=== PATIENT | female | born 1980 | race Caucasian/White ===

== ENCOUNTER 2017-08-17 05:40 | Day surgery (SDC) | payer OTHER ==
[~2017-08-17] VITALS: Ht 172.7 cm; Wt 112.0 kg
[~2017-08-17 05:40] MED LIST: LEVOTHYROXINE88 MCG PO; METFORMIN HCL1000 MG PO; PRAVASTATIN SOD20 MG PO; TOUJEO SOL300 UNIT/1; VICTOZA 3-0.6 MG/0.1 SUB-Q
[2017-08-17] MEDS ORDERED: DOXYCYCLINE HY100 MG PO (06:02)
[2017-08-17] MEDS ORDERED: LISINOPRIL10 MG PO (06:02)
--- NOTE | 2017-08-17 06:36 | NUR ---
LE: 0540 PT ARRIVED AMBULATING ON OWN WITH . PT IN ROOM, WIPE DOWN DONE. VITALS OBTAINED AND CHECK IN COMPLETE. IV SITE ATTEMPTED X3, NO SUCCESS. OR CHARGE NOTIFIED. REQUEST RAINA BUENO ATTEMPT IV WITH US. PT RESTING, CALL LIGHT IN REACH.
--- NOTE | 2017-08-17 09:00 | NUR ---
08/17/17 0900 Nelly Borges 0826 RESP EVEN AND UNLABORED. PT DENINES PAIN AND NAUSEA, BUT HAS SOME DIZZINESS. 0830 O2 SAT 99%, O2 REMOVED. 0850 PT DRINKING 10ML OF WATER. PT REPORTS A DECREASE IN DIZZINESS. 0900 PT RESTING IN BED IN HIGH FOWLERS. PT DENIENS PAIN AND NAUSEA.
--- NOTE | 2017-08-20 11:54 | OR ---
[facility] [address] [place], [place] [address] Signed DATE OF OPERATION: 08/17/2017 SURGEON: Sarah Bernstein MD PREOPERATIVE DIAGNOSES: 1. Right breast lesions x2. 2. Left axillary mass (1 x 2 cm). POSTOPERATIVE DIAGNOSES: 1. Right breast lesions x2. 2. Left axillary mass (1 x 2 cm). PROCEDURES: 1. Excision of left axillary cystic abscess. 2. Wound cultures. ESTIMATED BLOOD LOSS: None. INDICATIONS: Chloé is a 37-year-old diabetic female, who has had trouble with cystic acne. She has had it in various locations on her body. She has an area on the right breast on the medial side almost to the mammary crease. It had been infected recently and they tried to incise and drain it off to the side and just below for reasons that are not clear. At one point, she had wound cultures and so she has been on antibiotics for that. She also has a recurring draining cyst in her left axilla that is probably 1 x 2 cm. As a result, she was asked to see me as a local general surgeon. Within the office, I met with Chloé and her . Our original plan was to drain the two areas on the right breast as well as the left axilla. However, today in our preop area, the right breast is healed up very nicely and the overlying skin is quite healthy, so we decided that would leave that alone for now. However, she does have a recurring draining cystic abscess in her left axilla and we decided to go ahead and excise that fully today. Consequently, we marked that location with our pen. In the office, I had explained to Chloé there is risk including, but not limited to bleeding, infection, scarring, change in contour of the skin, and recurrent abscesses in the same or other locations. She and her had expressed understanding and wished to proceed. PROCEDURE NOTE: Chloé was taken into our operating room and placed in the supine position under monitored anesthesia care per our nurse field court researcher. Chloé was given preoperative Electronically Signed By: SARAH BERNSTEIN MD 08/20/17 1154 PATIENT NAME: HCLOÉ FREEMAN OPERATIVE REPORT DATE OF : 78 PHYSICIAN: SARAH BERNSTEIN MD REPORT #: [id number] REPORT IS CONFIDENTIAL AND NOT TO BE RELEASED WITHOUT AUTHORIZATION [facility] [address] [place] [id number] Signed antibiotics along with subcutaneous heparin. SCDs were utilized. She was then prepped and draped in the usual sterile fashion. Local anesthetic was then copiously injected in and around the lesion. We noticed that the cystic cavity filled with local anesthetic during injection. After this, we made a transverse elliptical incision around that area and we carefully went down around that area with the cautery to include the cystic cavity and the surrounding scar tissue. At one point, we did open the top of the cystic cavity. We could see down in the cavity. It was at least a cm wide by couple cm long. In this way, we removed the entire cavity along with the overlying skin en bloc that was passed off the field to the Pathology department. We then irrigated out her wound and closed the wound in layers with interrupted 3-0 Monocryl suture. The skin edges were reapproximated with a running 6-0 fast absorbing plain gut suture. After this, dry gauze and tape was applied. Chloé was then transferred to her hospital bed and taken into recovery room in stable condition. Sarah Bernstein MD ALB/MODL /[id number] cc: ADOLFO Rueda Electronically Signed By: SARAH BERNSTEIN MD 08/20/17 1154 PATIENT NAME: CHLOÉ FREEMAN OPERATIVE REPORT DATE OF : 78 PHYSICIAN: SARAH BERNSTEIN MD REPORT #: [id number] REPORT IS CONFIDENTIAL AND NOT TO BE RELEASED WITHOUT AUTHORIZATION
== END 2017-08-17 09:35 | disposition home or self-care (01) ==
LOC: DS 05:40
PROVIDERS: Colon & Rectal Surgery
PROC: 0HBCXZZ Excision of Left Upper Arm Skin, External Approach (ICD-10-PCS; principal; 2017-08-17 06:45)
DX: L72.8 Other follicular cysts of the skin and subcutaneous tissue (principal); E03.9 Hypothyroidism, unspecified; E11.9 Type 2 diabetes mellitus without complications; F32.9 Major depressive disorder, single episode, unspecified; E78.5 Hyperlipidemia, unspecified; Z98.890 Other specified postprocedural states; Z79.899 Other long term (current) drug therapy
CPT/HCPCS: 00400; 36415; 80048; 84703; 85025; 87070; 87075; 87205; J1644; J1885; J1956; J2250; J2405; J2704; J3010; J7120

== ENCOUNTER 2020-09-24 08:00 | Day surgery (SDC) | payer OTHER ==
[~2020-09-24] VITALS: Ht 172.7 cm; Wt 115.9 kg
[~2020-09-24 08:00] MED LIST changes: +ACTOS15 MG PO; +DOXYCYCLINE HY100 MG PO; +LISINOPRIL10 MG PO; +MINOCYCLINE HC100 M1 PO; +NOVOLIN R100 UNIT/2 SQ; +TRESIBA FL100 UNIT/1 SUB-Q
--- NOTE | 2020-09-24 09:40 | NUR ---
HAS GERMAN HEALED AND UN HEALED CYSTIC ACNES AREAS , ARMS LEGS TORSO FACE
--- NOTE | 2020-09-24 10:47 | NUR ---
09/24/20 Cherrie6 Digna Olivarez 1040- PT ARRIVES TO PACU NONAROUSABLE TO NOXIOUS STIMULI WITH AN OPA IN PLACE. RESP EVEN AND UNLABORED. OXYGEN SAT HIGH 90'S TO 100% ON 6L VIA MASK.
--- NOTE | 2020-09-24 11:27 | NUR ---
ICED WATER AND SUGAR FREE JELLO GIVEN. CALL LIGHT IS WITHIN REACH. PATIENT IS SITTING UP EATING AND DRINKING AND TOLERATING THAT WELL. PATIENT IS TEARFUL AND DOES NOT VERBALIZE WHY.
[2020-09-24] MEDS ORDERED: HYDROCODON-ACE1 EAC8 PO (11:55)
--- NOTE | 2020-09-24 12:43 | NUR ---
CALL TO PATIENT'S - MESSAGE LEFT - TELLING HIM HE IS WELCOME TO JOIN PATIENT IN HER ROOM.
--- NOTE | 2020-09-24 13:50 | NUR ---
LE 1330: PATIENT IS UP TO THE BATHROOM WITH SPOUSE ASSIST. SHE AMBULATES WELL AND REPORTS "A LITTLE" DIZZINESS. DISCHARGE INSTRUCTIONS ARE GIVEN AND SHE AND HER SPOUSE VERBALIZE UNDERSTANDING. PATIENT IS GETTING DRESSED IN THE PRESENCE OF HER SPOUSE. SHE TRANSFERS HERSELF TO THE WHEELCHAIR AND THEN TO HER PERSONAL VEHICLE AND TOLERATES THAT WELL.
--- NOTE | 2020-09-25 17:20 | OR ---
[facility] [address] [place], [place] [address] Signed DATE OF OPERATION: 09/24/2020 SURGEON: Sarah Garvey MD PREOPERATIVE DIAGNOSIS: Right breast medial lower quadrant and sternal hidradenitis suppurativa. POSTOPERATIVE DIAGNOSIS: Right breast medial lower quadrant and sternal hidradenitis suppurativa. PROCEDURE: Excision of hidradenitis suppurativa. ESTIMATED BLOOD LOSS: Minimal. INDICATIONS: Chloé is a 40-year-old obese diabetic female who has had trouble with cystic acne as well as hidradenitis suppurativa involving the axilla and underneath her inframammary crease. We helped her excise hidradenitis from her left axilla a few years ago. Consequently, she and her are quite familiar with this whole process. She has an area on the medial lower quadrant of the right breast that was incised and drained, but has never quite healed and continues to drain fluid and pus intermittently. When injected with saline, it travels more lateral to an area and that overlying skin was quite thin. Consequently, she was asked to see me with respect to the above. I had met with Chloé and her in the office. We could see the pits over the lower sternum, a small opening on the medial edge of the inframammary crease of the right breast and then of course that extended out onto the breast laterally probably 3 or 4 cm. I explained to Chloé just like her axilla that there would be granulation tissue underneath this and we would have to excised all of that until completely gone, otherwise it would never heal. Also, she has very large breasts and there is enormous amount of tension on the skin overlying the sternum in the inframammary crease. Consequently, our ability to bring that tissue back together primarily and close it would be markedly reduced. In addition, she has some low-grade infection and it is probably not madison to close the wound completely. She understands there is risk to the surgery including, but not limited to bleeding, infection, scarring, change in contour of the skin as well as recurrent hidradenitis in the same or other locations. She and her had expressed understanding and wished to proceed. DESCRIPTION OF PROCEDURE: Electronically Signed By: SARAH GARVEY MD 09/25/20 1720 PATIENT NAME: CHLOÉ FREEMAN OPERATIVE REPORT DATE OF : 78 REPORT #: [id number] PHYSICIAN: SARAH GARVEY MD PCP: FLOR ORELLANA REPORT IS CONFIDENTIAL AND NOT TO BE RELEASED WITHOUT AUTHORIZATION [facility] [address] [place], [place] [address] Signed I met with Chloé and her in our preop area. She still had some packing in the 1 cm I and D site on the inframammary crease medially of the right breast. We marked that area appropriately. After this, Chloé was taken in the operating room and placed in the supine position under LMA anesthesia. She was given preoperative antibiotics along with subcutaneous heparin. SCDs were utilized. She was then prepped and draped in the usual sterile fashion. We started with a transverse incision with the cautery and we headed laterally on the breast from the inframammary crease. We probed the area with the hemostats and later the Pean clamp and we found that indeed it tracked over onto the breast and in that area thin skin was excised as well. We went around all the granulation tissue with the cautery until it was completely excised in this area. We found that it also tracked superiorly up the sternum another 3 cm or so. We had to make a counter incision over the sternum as the tissue came right up to the surface. We also encountered some pus initially, so we took deep wound cultures. We used a vertical elliptical incision may be 2 cm at most over the sternum, excised that skin, so we could access all the granulation tissue over the sternum. We found that some of the granulation tissue tracked laterally both left and right over the sternal area. We had to track those down with the cautery until completely excised as well. We then injected local anesthetic throughout the wound and underneath the skin. The wound was irrigated and suctioned out until clear. We closed the lateral aspect of the right incision on the breast with interrupted 3-0 subcuticular Monocryl sutures in the dermis. We then used 2-0 nylon vertical mattress sutures to help bring that lateral portion of that incision together. The medial portion was left open for drainage and packing. We then used 4 inch gauze roll with soaked in full strength Dakin's solution and we packed that through the sternal incision down onto the right breast until we filled up the entire cavity and cut at the length over the sternal incision. This was covered with dry gauze and ABD. After this, Chloé was awakened from anesthesia, extubated in the OR and taken to recovery room in stable condition. Sarah Garvey MD ALB/MODL /[id number] cc: MD Flor Basilio PA Electronically Signed By: SARAH GARVEY MD 09/25/20 1720 PATIENT NAME: CHLOÉ FREEMAN OPERATIVE REPORT DATE OF : 78 REPORT #: [id number] PHYSICIAN: SARAH GARVEY MD PCP: FLOR ORELLANA REPORT IS CONFIDENTIAL AND NOT TO BE RELEASED WITHOUT AUTHORIZATION [address] [address] Signed Copies: SARAH GARVEY MD, LINDA PA ~ Electronically Signed By: SARAH GARVEY MD 09/25/20 1720 PATIENT NAME: CHLOÉ FREEMAN OPERATIVE REPORT DATE OF : 78 REPORT #: [id number] PHYSICIAN: SARAH GARVEY MD PCP: FLOR ORELLANA REPORT IS CONFIDENTIAL AND NOT TO BE RELEASED WITHOUT AUTHORIZATION
--- NOTE | 2020-09-28 10:44 | PATH ---
[facility] [address] [place], [place] [address] Signed SPECIMEN(S): A RIGHT BREAST SPECIMEN SOURCE: A. RIGHT BREAST CLINICAL HISTORY: Rt breast hidradenitis. FINAL PATHOLOGIC DIAGNOSIS: Skin and soft tissue, right breast, designated "hidradenitis", excision: - Deep dermal granulation tissue, abscesses, fibrosis, and foreign body type giant cell reaction with associated weakly polarizable foreign material. - Overlying epidermis with no histopathologic abnormality. COMMENT: No folliculitis or epidermal sinuses are seen. No background breast epithelial elements are identified. The findings could be compatible with hidradenitis suppurativa in the appropriate clinical context. Clinical correlation is required. NAL:cml:C2NR MICROSCOPIC EXAMINATION: Histologic sections of all submitted blocks are examined by light microscopy. These findings, together with the gross examination, support the pathologic diagnosis. GROSS DESCRIPTION: The specimen, labeled "Nathanael FULTON," and designated on the requisition "right breast, right breast hidradenitis," is received in formalin and consists of 23 g, 5 pieces of yellow fibrofatty tissue from 1.3 up to 7.5 cm in greatest dimension. The two largest pieces contain, grossly unremarkable skin ellipse from 1.6 up to 2.4 cm in greatest dimension. The external surface of the smallest piece is inked yellow, the external surface of the second smallest piece is inked red, and the external surface of the third smallest piece is inked green. The resection margin of the largest piece is inked blue and the resection margin of the second largest piece is inked orange. The five pieces are cross-sectioned to reveal slightly edematous, yellow fibrofatty to aguirre-white fibroglandular tissue with focal areas of ill-defined, somewhat softened, clear, gelatinous material from less PATIENT NAME: JENNIFER FREEMAN PATHOLOGY DATE OF : 78 REPORT #: [id number] PHYSICIAN: GAMA PATHOLOGY PCP: KATE ORELLANA REPORT IS CONFIDENTIAL AND NOT TO BE RELEASED WITHOUT AUTHORIZATION [facility] [address] [place], [place] [address] Signed than 0.1 up to 1.3 cm in greatest dimension and comprising less than 5% of the parenchyma.. Fibroglandular tissue comprises approximately 30% of the parenchyma. An additional discrete mass/lesion is not grossly identified. D[employer] sections are submitted in three cassettes (A1-A3). AI (under the direct supervision of a pathologist) The Gross Description was prepared using a voice recognition system. The report was reviewed for accuracy; however, sound-alike word errors, addition and/or deletions may occur. If there is any question about this report, please contact Client Services. PERFORMING LABORATORY: The technical component was performed by [facility], [address] [place] [id number] (Z[employer]ter [employer]: Judie Bloom MD; CLIA# [id number]). Professional interpretation was performed [facility], [address] [address] (CLIA# [id number]). Diagnostician: Martina Arechiga MD Pathologist Electronically Signed 09/28/2020 Copies: ~ PATIENT NAME: JENNIFER FREEMAN PATHOLOGY DATE OF : 78 REPORT #: [id number] PHYSICIAN: GAMA PATHOLOGY PCP: KATE ORELLANA REPORT IS CONFIDENTIAL AND NOT TO BE RELEASED WITHOUT AUTHORIZATION
== END 2020-09-24 13:35 | disposition home or self-care (01) ==
LOC: DS 08:00
PROVIDERS: ATTEND Colon & Rectal Surgery
PROC: 0HB5XZZ Excision of Chest Skin, External Approach (ICD-10-PCS; principal; 2020-09-24 09:00)
DX: L73.2 Hidradenitis suppurativa (principal); E11.9 Type 2 diabetes mellitus without complications; E78.00 Pure hypercholesterolemia, unspecified; E03.9 Hypothyroidism, unspecified; Z79.4 Long term (current) use of insulin
CPT/HCPCS: 00404; 87070; 87075; 87147; 87205; J0690; J1644; J1885; J2001; J2250; J2405; J2704; J7121

== ENCOUNTER 2021-12-19 09:37 | Emergency (ER) | payer OTHER ==
[~2021-12-19] VITALS: Ht 172.7 cm; Wt 112.7 kg
[~2021-12-19 09:37] MED LIST changes: +HYDROCODON-ACE1 EAC8 PO
[2021-12-19] MEDS ORDERED: ATENOLOL25 MG PO (10:13)
[2021-12-19] MEDS ORDERED: AMARYL2 MG PO (10:13)
[2021-12-19] MEDS ORDERED: LIPITOR10 MG PO (10:13)
[2021-12-19] MEDS ORDERED: CITRACAL SOFT1 EACH PO (10:15)
[2021-12-19] MEDS ORDERED: SPIRONOLACTONE50 MG PO (10:16)
[2021-12-19] MEDS ORDERED: GLUCOTROL XL5 MG PO (10:16)
[2021-12-19] MEDS ORDERED: TYLENOL EXTRA500 MG PO (12:56)
[2021-12-19] MEDS ORDERED: ADVIL200 M1 PO (12:56)
[2021-12-19] MEDS ORDERED: BACTRIM DS TAB1 EACH PO (12:56)
[2021-12-19] MEDS ORDERED: CLEOCIN HCL300 MG PO (12:56)
[2021-12-19] MEDS ORDERED: HYDROCODON-ACE1 EA10 PO (13:10)
== END 2021-12-19 13:22 | disposition home or self-care (01) ==
LOC: ED 09:37
DX: L02.31 Cutaneous abscess of buttock (principal); E11.9 Type 2 diabetes mellitus without complications; Z79.4 Long term (current) use of insulin; Z79.899 Other long term (current) drug therapy
CPT/HCPCS: 10060; 36415; 72193; 80053; 85025; 99283-25; J1170; J3010; Q9967

== ENCOUNTER 2021-12-28 08:45 | Day surgery (SDC) | payer OTHER ==
[~2021-12-28] VITALS: Ht 172.7 cm; Wt 113.6 kg
[~2021-12-28 08:45] MED LIST changes: +ACTOS15 MG; +ADVIL200 M1 PO; +AMARYL2 MG PO; +ATENOLOL25 MG PO; +BACTRIM DS TAB1 EACH PO; +CITRACAL SOFT1 EACH PO; +CLEOCIN HCL300 MG PO; +FARXIGA5 MG PO; +GLUCOTROL XL5 MG PO; +HYDROCODON-ACE1 EA10 PO; +LEVOFLOXACIN500 MG PO; +LIPITOR10 MG PO; +SPIRONOLACTONE50 MG PO; +TYLENOL EXTRA500 MG PO
[2021-12-28] MEDS ORDERED: HYDROCODON-ACE1 EAC8 PO (12:16)
--- NOTE | 2021-12-29 05:43 | OR ---
[facility] [address] [place], [place] [address] Signed DATE OF OPERATION: 12/28/2021 SURGEON: Sarah Garvey MD PREOPERATIVE DIAGNOSES: 1. Hidradenitis distal sternum and right inframammary crease. 2. Left gluteal abscess. POSTOPERATIVE DIAGNOSES: 1. Hidradenitis distal sternum and right inframammary crease. 2. Left gluteal abscess. PROCEDURES: 1. Excision of hidradenitis. 2. Excision of left gluteal abscess. ESTIMATED BLOOD LOSS: None. INDICATIONS: Chloé is a 41-year-old obese diabetic female with a long history of hidradenitis as well as cystic acne. Many years ago, she had an abscess just to the left to the gluteal crease. She remembers it was sized and drained. I helped her with a significant amount of hidradenitis in the right inframammary crease in up over the sternum and onto the left breast. It healed by secondary intention. She has two areas now on the distal sternum and right in the medial right inframammary crease where she has some granulation tissue. We could not quite get it all with silver nitrate and it keeps recurring. At some point, there was some consideration may have been infected. She took clindamycin as well as Bactrim. She has also been to her patient support representative and was on spironolactone. Overall, it is much better. Obviously the granulation tissue is not allowing it to heal in completely. Each area is only 5 or 6 mm in diameter, but it does travel underneath a bit. In addition, this area on the left gluteus erupted and she had been in the emergency room and had it I and D by our ER physician. She had been asked to come back and see me with respect to these three areas. In the office, I explained to Chloé it is critical that she maintain her blood sugars under good control. Also at her age she is feeling the effects of her large breasts with pain in her neck and shoulders. Some consideration that she is going to need a bilateral breast reduction not only for that reason, but for hidradenitis as well. In the office I explained to Chloé and her would have to re-excise the two areas in the sternum and over the right inframammary crease and we will excise area in the left gluteal crease as well. They Electronically Signed By: SARAH GARVEY MD 12/29/21 0543 PATIENT NAME: CHLOÉ FREEMAN OPERATIVE REPORT DATE OF : 78 REPORT #: [id number] PHYSICIAN: SARAH GARVEY MD PCP: FLOR ORELLANA REPORT IS CONFIDENTIAL AND NOT TO BE RELEASED WITHOUT AUTHORIZATION [facility] [address] [place] [address] Signed have been through this before and they understand it quite well. More than likely leave at least one if not all three of these open to heal in secondarily. We may close them primarily and if they would give us any trouble simply cut the suture out in the office. Chloé and her are very well-versed in this whole ordeal. They have been through it before. Of course there is risk including, but not limited to bleeding, infection, scarring, change in contour of the skin as well as recurrent abscesses or hidradenitis. They had expressed understanding and wished to proceed. PROCEDURE IN DETAIL: I met with Chloé and her in the preop area. We marked all three areas appropriately. After this, she was taken in the operating room and placed in the left lateral decubitus position under general LMA anesthesia. She was given preoperative antibiotics along with subcutaneous heparin. SCDs were utilized. Appropriate padding and monitoring were placed. We dressed the left gluteal area first. It is just off to the midline. As I looked at I do not believe this is a pilonidal cyst. We excised that area including her previous scars almost back to all the scar tissue being removed. go down around the granulation tissue to healthy adipose tissue. Again, it did not quite make it over the midline, I do not believe this is a pilonidal cyst. That wound had to be left open and packed with saline soaked gauze a dry ABD and mesh underwear. We injected local anesthetic in the wound and irrigated that out until clear. That will heal in secondarily. Chloé was then rotated into the supine position with appropriate padding and monitoring once again. Her chest was then prepped and draped in the usual sterile fashion. We used a 15 blade knife with a cautery to excise the skin and the underlying granulation tissue. As always, it traveled just a bit and we cut back until we had healthy adipose tissue. We irrigated the areas until clear. Local anesthetic was injected in both areas. We then used 2-0 nylon vertical mattress sutures to help bring the tissue together and close the space. We also used 3-0 Monocryl interrupted subcutaneous sutures to bring the dermis together. We used a 5-0 fast absorbing plain gut suture to close the skin edges on both incisions. Dry gauze and tape were then applied to both these areas. Chloé was awakened from anesthesia, extubated in the OR, and taken to recovery room in stable condition. Sarah Garvey MD ALB/MODL /[id number] Electronically Signed By: SARAH GARVEY MD 12/29/21 0543 PATIENT NAME: CHLOÉ FREEMAN OPERATIVE REPORT DATE OF : 78 REPORT #: [id number] PHYSICIAN: SARAH GARVEY MD PCP: FLOR ORELLANA REPORT IS CONFIDENTIAL AND NOT TO BE RELEASED WITHOUT AUTHORIZATION [address] [address] Signed cc: MD Flor Basilio PA Copies: SARAH GARVEY MD, LINDA PA ~ Electronically Signed By: SARAH GARVEY MD 12/29/21 0543 PATIENT NAME: CHLOÉ FREEMAN OPERATIVE REPORT DATE OF : 78 REPORT #: [id number] PHYSICIAN: SARAH GARVEY MD PCP: FLOR ORELLANA REPORT IS CONFIDENTIAL AND NOT TO BE RELEASED WITHOUT AUTHORIZATION
--- NOTE | 2021-12-30 15:29 | PATH ---
[facility] [address] [place], [place] [address] Signed SPECIMEN(S): A GLUTEAL ABSCESS SPECIMEN(S): B STERNAL HIDRADENITIS SPECIMEN SOURCE: A. GLUTEAL ABSCESS B. STERNAL HIDRADENITIS CLINICAL HISTORY: Excise gluteal abscess (specimen A) and sternal hidradenitis (specimen B). FINAL PATHOLOGIC DIAGNOSIS: A. Gluteal abscess: - Skin with underlying fibrosis with acute and chronic inflammation and fat necrosis, consistent with features seen in abscess formation. B. Sternal hidradenitis: - Skin with dermal acute and chronic inflammation, consistent with features seen in hidradenitis. TWK:[facility]:C2NR MICROSCOPIC EXAMINATION: Histologic sections of all submitted blocks are examined by light microscopy. These findings, together with the gross examination, support the pathologic diagnosis. GROSS DESCRIPTION: Two specimens are received in two containers, labeled "KJ." A. The specimen, labeled "KJ, A," and designated on the requisition "gluteal abscess," is received in formalin and consists of a aguirre elliptical skin fragment with attached deep subcutaneous tissue measuring 3.5 x 1.5 x 2.7 cm. The cutaneous surface contains a 1.5 x 0.2 cm, ulcerated/perforated lesion measuring up to 0.4 cm to the nearest margin. Cut surface reveals fibroadipose tissue with focally hemorrhagic area with possible adherent devitalized tissue. Clinical Fellow sections are submitted in cassettes (A1-A3). B. The specimen, labeled "KJ, B," and designated on the requisition "sternal hidradenitis," is received in formalin and consists of aguirre-pink, rubbery tissue fragments measuring 2.7 x 1.7 x 0.6 cm in aggregate. Specimen is sectioned and entirely submitted in cassette (B1). AT (under the direct supervision of a pathologist) The Gross Description was prepared using a voice recognition system. The report PATIENT NAME: JENNIFER FREEMAN PATHOLOGY DATE OF : 78 REPORT #: [id number] PHYSICIAN: GAMA GUERRERO PCP: KATE ORELLANA REPORT IS CONFIDENTIAL AND NOT TO BE RELEASED WITHOUT AUTHORIZATION [facility] [address] [place], [place] [address] Signed was reviewed for accuracy; however, sound-alike word errors, addition and/or deletions may occur. If there is any question about this report, please contact Client Services. PERFORMING LABORATORY: The technical component was performed by [facility], [address] [place] [id number] (CLIA# [id number]). The professional interpretation was performed by [facility], Located [facility], [address] [place] [address] (CLIA#: [id number]). Diagnostician: Rancho Calderon MD Pathologist Electronically Signed 12/30/2021 Copies: ~ PATIENT NAME: JENNIFER FREEMAN PATHOLOGY DATE OF : 78 REPORT #: [id number] PHYSICIAN: GAMA GUERRERO PCP: KATE ORELLANA REPORT IS CONFIDENTIAL AND NOT TO BE RELEASED WITHOUT AUTHORIZATION
== END 2021-12-28 14:27 | disposition home or self-care (01) ==
LOC: DS 08:45
PROVIDERS: ATTEND Colon & Rectal Surgery
PROC: 0HB8XZZ Excision of Buttock Skin, External Approach (ICD-10-PCS; 2021-12-28)
PROC: 0JBD0ZZ Excision of Right Upper Arm Subcutaneous Tissue and Fascia, Open Approach (ICD-10-PCS; principal; 2021-12-28 10:00)
DX: L73.2 Hidradenitis suppurativa (principal); L92.9 Granulomatous disorder of the skin and subcutaneous tissue, unspecified; L90.5 Scar conditions and fibrosis of skin; L02.31 Cutaneous abscess of buttock; E11.9 Type 2 diabetes mellitus without complications; E78.00 Pure hypercholesterolemia, unspecified; E03.9 Hypothyroidism, unspecified; E78.2 Mixed hyperlipidemia; K58.0 Irritable bowel syndrome with diarrhea; Z79.84 Long term (current) use of oral hypoglycemic drugs
CPT/HCPCS: 00400; J0690; J1100; J1644; J1885; J2001; J2250; J2405; J2704; J3010; J7121